=== PATIENT | female | born 1955 | race Two or more races ===

== ENCOUNTER 2023-12-03 14:13 | Emergency (ER) | payer OTHER ==
[~2023-12-03] VITALS: Ht 165.1 cm; Wt 53.5 kg
[2023-12-03] MEDS ORDERED: NORFLEX100MG PO (14:28)
[2023-12-03] MEDS ORDERED: PROTONIX40 M1 PO (14:29)
[2023-12-03] MEDS ORDERED: LEVSIN0.125 MG (14:29)
[2023-12-03] MEDS ORDERED: KETO10TA2 PO (14:29)
[2023-12-03] MEDS ORDERED: CAMBIA50 MG (14:30)
[2023-12-03] MEDS ORDERED: NEURONTIN300 MG PO (14:30)
[2023-12-03 18:04] LABS: HEMATOCRIT 35.4 % (36.0-45.00); HEMOGLOBIN 12.5 g/dL (12.0-15.00); MEAN CELL VOLUME 96.9 fL (80.00-100.00); MEAN CORPUSCULAR HEMOGLOBIN 34.2 pg (27.00-32.0); MEAN CORPUSCULAR HGB CONC 35.3 g/dl (32.0-36.0); PLATELET COUNT 329 K/uL (150-450); RED BLOOD COUNT 3.65 M/uL (4.00-6.00); RED CELL DISTRIBUTION WIDTH 12.5 % (11.5-14.5)
[2023-12-03 18:14] LABS: PH,URINE 7.5 (5.0-8.0); URINE APPEARANCE Clear; URINE BILIRRUBIN Negative (NEGATIVE); URINE BLOOD Trace; URINE COLOR Yellow; URINE GLUCOSE Negative (NEGATIVE); URINE LEUKOCYTE Small; URINE NITRATE Negative; URINE PROTEIN Negative (NEGATIVE); URINE UROBILINOGEN 0.2 E.U./dl
[2023-12-03 18:18] LABS: URINE BACTERIA 93.2 uL (0.0-1933); URINE EPITHELIAL CELLS 9.8 uL (0.0-38.8); URINE RBC 16.2 uL (0.0-20.8); URINE WBC 5.7 uL (0.0-23.2)
[2023-12-03 18:22] LABS: ALBUMIN 3.7 gm/dL (3.4-5.0); BILIRUBIN TOTAL 0.29 mg/dL (0.3-1.2); CALCIUM 8.8 mg/dL (8.5-10.1); CREATININE SERUM 0.93 mg/dL (0.55-1.02); GFR 60.32; GLOBULINA 4.1 G/DL (2.4-3.5); POTASSIUM 4.42 mEq/L (3.5-5.1); TOTAL PROTEIN 7.8 gm/dL (6.4-8.2)
[2023-12-03] MEDS ORDERED: KETOROLAC TROMETHAMINE 30 MG VIAL IV ONE (20:00)
== END 2023-12-03 21:03 | disposition home or self-care (01) ==
LOC: ER 14:13
PROVIDERS: Nurse Practitioner Family
DX: R30.0 Dysuria (principal); K57.32 Diverticulitis of large intestine without perforation or abscess without bleeding; Z85.41 Personal history of malignant neoplasm of cervix uteri; K57.30 Diverticulosis of large intestine without perforation or abscess without bleeding; K59.00 Constipation, unspecified